=== PATIENT | female | born 1945 | race Caucasian/White ===

== ENCOUNTER 2016-05-27 16:55 | Observation (INO) | payer OTHER, MEDICARE ==
[~2016-05-27] VITALS: Ht 165.1 cm; Wt 94.5 kg
[~2016-05-27 16:55] MED LIST: COLACE100 MG PO; HYDROCODON-ACE1 EAC7 PO; VALIUM5 MG PO
[2016-05-27 17:29] LABS: EOSINOPHIL (%) 0.2 % (0-5); HEMATOCRIT 43.9 % (36.0-46.0); IMMATURE GRANULOCYTE (%) 0.2 % (0.0-0.7); IMMATURE GRANULOCYTE COUNT 0.3 K/uL; LYMPHOCYTE COUNT 1.3 K/uL (1.0-2.8); MCHC 34.4 G/DL (30.0-36.0); MCV 95.9 FL (83-99); MEAN PLAT.VOLUME 10.1 uM^3 (9.5-12.4); MONOCYTE (%) 6.1 % (3-12); NEUTROPHIL (%) 85.7 % (45-76); NEUTROPHIL COUNT 14.1 K/uL (1.8-6.4); PLATELET COUNT 163 K/uL (156-360); RBC DIS.WIDTH-CV 12.8 % (11.8-14.6); RED BLOOD COUNT 4.58 M/uL (3.80-5.20); WHITE BLOOD COUNT 16.5 K/uL (4.1-10.2)
[2016-05-27 17:38] LABS: CHLORIDE 103 mEq/L (99-109); POTASSIUM 4.1 mEq/L (3.7-5.4); SODIUM 139 mEq/L (136-147)
[2016-05-27 17:39] LABS: D-DIMER ELISA 0.51 mg/L FEU (< 0.57)
[2016-05-27 17:41] LABS: GLUCOSE 201 mg/dL (70-99)
[2016-05-27 17:42] LABS: ANION GAP 13 MEQ/L (2-14); TOTAL BILIRUBIN 0.5 mg/dL (0.0-1.0)
[2016-05-27 17:44] LABS: ALKALINE PHOSPHATASE 124 IU/L (3-129); GFR ESTIMATE (CALCULATED) > 59 mL/min/
[2016-05-27 17:45] LABS: UREA NITROGEN (BUN) 19 mg/dL (9-23)
[2016-05-27 17:53] LABS: TROP-I INTERPRETATION NEGATIVE; TROPONIN-I < 0.01 ng/mL (0.0-0.30)
[2016-05-27] MEDS ORDERED: SONATA5 MG PO (19:27)
[2016-05-27] MEDS ORDERED: PRAVACHOL40 MG PO (19:27)
[2016-05-27] MEDS ORDERED: ROBITUSSIN DM118 ML PO (19:28)
[2016-05-27] MEDS ORDERED: PREVACID30 MG PO (19:28)
[2016-05-27] MEDS ORDERED: GLUCOSAMINE &1 EAC1 PO (19:28)
[2016-05-27] MEDS ORDERED: VITAMIN C1000 MG PO (19:29)
[2016-05-27] MEDS ORDERED: CENTRUM SILVER1 EAC4 PO (19:29)
[2016-05-27] MEDS ORDERED: LO-DOSE ASPIRIN81 M1 PO (19:30)
[2016-05-27] MEDS ORDERED: MAGNESIUM OXID500 MG PO (19:30)
[2016-05-28 00:05] LABS: TROP-I INTERPRETATION NEGATIVE; TROPONIN-I < 0.01 ng/mL (0.0-0.30)
[2016-05-28 06:10] LABS: CHLORIDE 105 mEq/L (99-109); POTASSIUM 4.1 mEq/L (3.7-5.4); SODIUM 139 mEq/L (136-147)
[2016-05-28 06:12] LABS: GLUCOSE 121 mg/dL (70-99)
[2016-05-28 06:14] LABS: ANION GAP 10 MEQ/L (2-14); HEMATOCRIT 41.5 % (36.0-46.0); MCHC 34.5 G/DL (30.0-36.0); MCV 95.8 FL (83-99); MEAN PLAT.VOLUME 10.3 uM^3 (9.5-12.4); PLATELET COUNT 155 K/uL (156-360); RBC DIS.WIDTH-SD 43.3 % (39-53); RED BLOOD COUNT 4.33 M/uL (3.80-5.20); WHITE BLOOD COUNT 11.9 K/uL (4.1-10.2)
[2016-05-28 06:16] LABS: GFR ESTIMATE (CALCULATED) > 59 mL/min/
[2016-05-28 06:17] LABS: UREA NITROGEN (BUN) 17 mg/dL (9-23)
[2016-05-28 06:20] LABS: TROP-I INTERPRETATION NEGATIVE; TROPONIN-I < 0.01 ng/mL (0.0-0.30)
[2016-05-28 07:39] VITALS: BP 130/61
[2016-05-28 12:02] VITALS: BP 115/62
== END 2016-05-28 18:53 | disposition home or self-care (01) ==
LOC: EME 16:55 → 5WEST 21:31 → EDOF 21:31 → 5WEST 05-28 07:14
PROVIDERS: Emergency Medicine; Hospitalist
DX: R07.89 Other chest pain (principal); R94.31 Abnormal electrocardiogram [ECG] [EKG]; M19.90 Unspecified osteoarthritis, unspecified site; E78.5 Hyperlipidemia, unspecified; D72.829 Elevated white blood cell count, unspecified; E66.9 Obesity, unspecified; Z68.34 Body mass index [BMI] 34.0-34.9, adult; M81.0 Age-related osteoporosis without current pathological fracture; K21.9 Gastro-esophageal reflux disease without esophagitis; Z96.653 Presence of artificial knee joint, bilateral; Z88.2 Allergy status to sulfonamides
CPT/HCPCS: 71010; 71275; 80048; 80053; 83605; 84484; 85025; 85027; 85379; 87040; 93005; 99281; 99284; G0378; J2270